=== PATIENT | female | born 1970 | race Caucasian/White ===

== ENCOUNTER → 2020-05-04 09:59 | Outpatient (CLI) | payer BC, SELFPAY ==
--- NOTE | ~2020-05-04 | MR_ITS ---
EXAMINATION: MR ankle LT wo con DATE: 05/04/2020 10:41 INDICATION: Achilles tendinitis with left ankle pain and swelling TECHNIQUE: Magnetic resonance imaging (MRI) of the left ankle was performed without intravenous contr ast. Sequences included sagittal, coronal, and axial proton-density weighted fast spin echo without a nd with fat saturation. COMPARISON: None. FINDINGS: Medial ankle ligaments: Deep and superficial deltoid ligaments as well as the spring ligament are normal. Lateral ankle ligaments: The anterior and posterior inferior tibiofibular ligaments are normal. The anterior talofibular, calc aneofibular and posterior talofibular ligaments are normal. Tendons: Mild thickening and increased signal of the distal Achilles tendon consistent with mild insertional t endinosis/enthesopathy. Small plantar calcaneal spur, with mild enthesopathic ossification along the posterior margin of the distal tendon. Tiny rim of increased fluid signal surrounding the distal tend on consistent with mild peritendinitis. The peroneus longus and brevis tendons are normal. The tibial is anterior and extensor hallucis longus and extensor digitorum longus tendons are normal. The tibial is posterior, flexor digitorum longus and flexor hallucis longus tendons are normal. Plantar fascia: Tiny plantar calcaneal spur at the origin of the otherwise normal plantar aponeurosis. No associated increased fluid signal to suggest acute plantar fasciitis. Bones/other: Bone alignment is normal. Normal bone marrow signal throughout with no reactive edema, fracture or pa thologic marrow replacing process. Joint spaces are normal. Fluid: Physiologic amount fluid in the joint spaces. No abnormal fluid collections. IMPRESSION: 1. Distal Achilles enthesopathy with enthesophytes and mild enthesopathic ossification, mild insertio nal tendinosis and mild peritendinitis. Reviewed, dictated and finalized at location B. IMPRESSION: 1. Distal Achilles enthesopathy with enthesophytes and mild enthesopathic ossif ication, mild insertional tendinosis and mild peritendinitis.
== END ==
PROVIDERS: Visit Provider Podiatrist Foot & Ankle Surgery
DX: M76.62 Achilles tendinitis, left leg (principal)
CPT/HCPCS: 73721

== ENCOUNTER 2021-11-14 00:01 | Day surgery (SDC) | payer BC, SELFPAY ==
[2021-11-07 13:50] VITALS: BMI 23.3
[2021-11-14 06:19] VITALS: BP 123/83; PULSE 87; RESP 16; TEMP 36.2; O2SAT 99
[2021-11-14] MEDS: LACTATED RINGERS 1,000 ML 150 ML IV CONT (06:24)
--- NOTE | 2021-11-14 07:07 | WPDANESEPPF ---
Anes - Initial Pre Proc Eval Procedure: Operation Date: 11/14/21 07:30 Proposed Procedures p Screening Colonoscopy - Adelfo Ramos MD Date/Time: 11/14/21 07:07 Surgeon: Adelfo Ramos MD Pre Op Diagnosis: neoplasm screening Patient Data Age: 51 Gender: F Height: 1.57 m Weight: 58.1 kg Last Vital Signs Temp 36.2 C L 11/14/21 06:19 Pulse 87 11/14/21 06:19 Resp 16 11/14/21 06:19 BP 123/83 11/14/21 06:19 Pulse Ox 99 11/14/21 06:19 Allergies Allergy/AdvReac Type Severity Reaction Status Date / Time No Known Allergies Allergy Unverified 11/14/21 06:18 Home Medications Medication Instructions Recorded Confirmed Type hydrochlorothiazide 25 mg PO DAILY 11/07/21 11/14/21 History loratadine 10 mg PO DAILY 11/07/21 11/14/21 History metoprolol succinate 25 mg PO DAILY 11/07/21 11/14/21 History olmesartan 5 mg PO DAILY 11/07/21 11/14/21 History spironolactone 150 mg PO DAILY 11/07/21 11/14/21 History Patient hx anesthesia problems: none Family hx anesthesia problems: none Results Review: All pre-operative results and documents have been reviewed as part of the pre-operative evaluation. [facility] Past Medical History Medical History (Updated 11/14/21 @ 07:07 by Kelvin Horner MD) HTN (hypertension) Surgical History Surgical History (Updated 11/14/21 @ 07:08 by Kelvin Horner MD) S/P laparotomy for ectopic Social History Social History Smoking status: Never smoker Alcohol intake: never Substance use type: does not use Living arrangements: with family Spiritual care concerns: No Anes - Eval Final PreProcedure Day of Procedure 11/14/21 07:07 Patient weight: normal Heart: regular rate and rhythm Lungs: clear to auscultation Airway: Mallampati scale class II Neurological: alert and oriented Last oral intake: >/= 8 hours ASA classification: II Emergent: no Anesthetic plan: proceed Anesthesia type and monitoring: general GIVS and standard monitoring Results Review: All pre-operative results and documents have been reviewed as part of the pre-operative evaluation. Informed Consent: The patient's anesthetic plan and its attendant risks and benefits were discussed with the patient/family/POA. Questions were solicited and answers provided to the satisfaction of the patient/family/POA.
--- NOTE | 2021-11-14 07:17 | PM.HPGS ---
History of Present Illness History of Present Illness Consent: Risks, benefits, and alternatives have been discussed and questions answered. Patient agrees to proceed with procedure. Chief complaint: neoplasm screening Narrative: Susan Ray is a 51 year old female here for first screening colonoscopy Review of Systems Constitutional: Constitutional: Denies headache(s) and Denies weakness Eyes: Eyes: Denies blurry vision ENT: Reports Normal hearing present, Denies headache(s) and Denies neck pain Cardiovascular: Cardiovascular: Denies chest pain and Denies dyspnea Respiratory: Respiratory: Denies dyspnea Gastrointestinal: Gastrointestinal: Reports no additional gastrointestinal complaints Genitourinary: Genitourinary: Denies dysuria Musculoskeletal: Musculoskeletal: Denies neck pain Integumentary/Breasts: Skin/Breast: Denies dry skin Neurologic: Reports Normal hearing present, Denies headache(s) and Denies weakness Psychiatric: Psychiatric: Denies anxiety Endocrine: Endocrine: Denies change in body appearance Hematologic/Lymphatic: Hematologic/Lymphatic: Denies easy bleeding Allergic/Immunologic: Allergic/Immunologic: Denies urticaria PMF Past Medical History Medical History (Updated 11/14/21 @ 07:17 by Adelfo Ramos MD) Colon cancer screening HTN (hypertension) Surgical History Surgical History (Updated 11/14/21 @ 07:08 by Kelvin Horner MD) S/P laparotomy for ectopic Social History Social History Smoking status: Never smoker Alcohol intake: never Substance use type: does not use Living arrangements: with family Spiritual care concerns: No Meds Home Medications and Allergies Home Medications Medication Instructions Recorded Confirmed Type hydrochlorothiazide 25 mg PO DAILY 11/07/21 11/14/21 History loratadine 10 mg PO DAILY 11/07/21 11/14/21 History metoprolol succinate 25 mg PO DAILY 11/07/21 11/14/21 History olmesartan 5 mg PO DAILY 11/07/21 11/14/21 History spironolactone 150 mg PO DAILY 11/07/21 11/14/21 History Allergies Allergy/AdvReac Type Severity Reaction Status Date / Time No Known Allergies Allergy Unverified 11/14/21 06:18 Vital Signs Vital Signs - 24 hr 11/14/21 06:19 Temperature 97.2 F L Pulse Rate 87 Respiratory Rate 16 Blood Pressure 123/83 Pulse Oximetry 99 Exam Const: General: comfortable and no acute distress HENMT: General nose exam: Normal nares present Eyes: General: appearance normal, both eyes and all related structures Neck: Neck: no JVD Resp: Auscultation: clear to auscultation bilaterally Cardio: Rate: regular rate Rhythm: regular rhythm GI: Inspection: non-distended GI Palp: Yes Soft to palpation Skin: General skin exam: normal color Neuro: General: gait normal Speech: normal speech Extrem: General: normal to inspection Psych: Mental Status: mental status grossly normal Assessment and Plan Assessment and plan (1) Colon cancer screening: Code(s): Z12.11 - Encounter for screening for malignant neoplasm of colon Status: Acute Assessment and Plan: colonoscopy
[2021-11-14 07:55] VITALS: BP 114/71; PULSE 76; RESP 18; O2SAT 100
[2021-11-14 08:05] VITALS: BP 108/73; PULSE 74; RESP 18; O2SAT 99
[2021-11-14 08:15] VITALS: BP 113/79; PULSE 72; RESP 20; O2SAT 100
== END 2021-11-14 08:40 | disposition home or self-care (01) ==
PROVIDERS: PCP Family Medicine; Visit Provider Internal Medicine Gastroenterology
PROC: 0DJD8ZZ Inspection of Lower Intestinal Tract, Via Natural or Artificial Opening Endoscopic (ICD-10-PCS; CPT 45378; principal; 2021-11-14 07:30)
DX: Z12.11 Encounter for screening for malignant neoplasm of colon (principal); D12.3 Benign neoplasm of transverse colon; K57.30 Diverticulosis of large intestine without perforation or abscess without bleeding; I10 Essential (primary) hypertension
CPT/HCPCS: 45380; 88305; J2704; J7120